=== PATIENT | female | born 1945 | race Caucasian/White ===

== ENCOUNTER → 2016-07-18 | Outpatient (CLI) | payer MEDICARE, BC ==
[~2016-07-18] MED LIST: BUDESONIDE1 POW; CHLOR-TRIMETON; NOLVADEX20 MG PO; RANITIDINE 7575 MG PO; TOPROL XL25 MG PO
== END ==
LOC: MC.RAD 11:40
DX: Z12.31 Encounter for screening mammogram for malignant neoplasm of breast (principal)

== ENCOUNTER → 2017-07-19 | Outpatient (CLI) | payer MEDICARE, BC | LOC: MC.RAD 13:19 | DX: Z12.31 Encounter for screening mammogram for malignant neoplasm of breast (principal) ==

== ENCOUNTER 2018-07-10 08:01 | Day surgery (SDC) | payer MEDICARE, BC ==
[~2018-07-10] VITALS: Ht 175.3 cm; Wt 76.6 kg
[2018-07-10 08:41] VITALS: BP 137/72; PULSE 96; TEMP 97.5
[2018-07-10] MEDS ORDERED: ZANTAC 150MG T150 MG PO (08:52)
[2018-07-10] MEDS ORDERED: SINGULAIR 110 MG/TAB PO (08:53)
[2018-07-10] MEDS ORDERED: LOPRESSOR 225 MG/TAB PO (08:53)
[2018-07-10] MEDS ORDERED: BIAXIN 500MG T500 MG PO (08:54)
[2018-07-10] MEDS ORDERED: VITAMIN B12 1541 TAB PO (08:56)
[2018-07-10] MEDS ORDERED: PULMICORT180 MCG/Ac IH (08:56)
[2018-07-10] MEDS ORDERED: CALCIUM WITH D31 CTB (08:57)
[2018-07-10] MEDS ORDERED: PREDNISONE20 MG PO (09:01)
[2018-07-10] MEDS ORDERED: VENTOLIN0.09 MG IH (09:01)
[2018-07-10] MEDS ORDERED: PROMETHAZINE PO (09:06)
[2018-07-10] MEDS ORDERED: CODEINE PO (09:06)
[2018-07-10] MEDS ORDERED: CHLORTRIMETON PO (09:08)
[2018-07-10] MEDS ORDERED: CHLOR-TABS4 MG PO (09:11)
[2018-07-10] MEDS ORDERED: PROMETHAZINE H118 ML PO (09:12)
--- NOTE | 2018-07-10 09:13 | NUR ---
PATIENT BECAME NAUSEATED AND HAD EMESIS AFTER STARTING IV - RECEIVED ZOFRAN 4MG IV DR PEARCE INTO TALK WITH PATIENT.
[2018-07-10 09:45] VITALS: BP 116/70; PULSE 73; TEMP 97.5
--- NOTE | 2018-07-10 09:45 | NUR ---
TO RM 5 PER CART FROM ENDOSCOPY. AMBULATED WITH 2 ASSIST TO RECLINER. ELEVATED LEGS. PATIENT RESTING QUIETLY. DR PEARCE TALKING WITH PATIENT AND . AT BEDSIDE.
[2018-07-10 10:00] VITALS: BP 100/59; PULSE 75
--- NOTE | 2018-07-10 10:00 | NUR ---
MORE AWAKE AND TAKING SIPS OF WATER. PATIENTS LEFT TO GET SOMETHING TO EAT.
[2018-07-10 10:15] VITALS: BP 111/62; PULSE 74
--- NOTE | 2018-07-10 10:23 | NUR ---
MORE AWAKE AND RECEIVED CRACKERS. DENIES N/V DENIES PAIN OR DISCOMFORT
--- NOTE | 2018-07-10 10:40 | NUR ---
RECEIVED 2ND PACKAGE OF CRACKERS DENIES N/V RECEIVED DISCHARGE INSTRUCTIONS WITH AT BEDSIDE. DISCONTINUED IV AND INT-CATHETER INTACT
--- NOTE | 2018-07-10 10:50 | NUR ---
UP AMBULATED TO BATHROOM AND TOLERATED WELL
--- NOTE | 2018-07-10 10:58 | NUR ---
DISCHARGED PER WC BY NURSING STAFF TO PRIVATE CAR IN CARE OF Cholo MARROQUIN
== END 2018-07-10 10:59 | disposition home or self-care (01) ==
LOC: SDCO 08:01
DX: Z12.11 Encounter for screening for malignant neoplasm of colon (principal); K63.5 Polyp of colon; K64.4 Residual hemorrhoidal skin tags; K57.30 Diverticulosis of large intestine without perforation or abscess without bleeding; J45.909 Unspecified asthma, uncomplicated; K21.9 Gastro-esophageal reflux disease without esophagitis; Z85.3 Personal history of malignant neoplasm of breast; Z85.89 Personal history of malignant neoplasm of other organs and systems; Z79.899 Other long term (current) drug therapy; Z98.51 Tubal ligation status; Z90.89 Acquired absence of other organs; Z88.1 Allergy status to other antibiotic agents
CPT/HCPCS: OP; J2250; J2405; J3010; J7030

== ENCOUNTER → 2018-07-23 | Outpatient (CLI) | payer MEDICARE, BC ==
[~2018-07-23] MED LIST changes: +BIAXIN 500MG T500 MG PO; +CALCIUM WITH D31 CTB; +CHLOR-TABS4 MG PO; +CHLORTRIMETON PO; +CODEINE PO; +LOPRESSOR 225 MG/TAB PO; +PREDNISONE20 MG PO; +PROMETHAZINE H118 ML PO; +PROMETHAZINE PO; +PULMICORT180 MCG/Ac IH; +SINGULAIR 110 MG/TAB PO; +VENTOLIN0.09 MG IH; +VITAMIN B12 1541 TAB PO; +ZANTAC 150MG T150 MG PO
== END ==
LOC: MC.RAD 12:57
DX: N64.4 Mastodynia (principal); Z85.3 Personal history of malignant neoplasm of breast
CPT/HCPCS: G0279

== ENCOUNTER 2019-06-30 21:43 | Emergency (ER) | payer MEDICARE, BC ==
[~2019-06-30] VITALS: Ht 175.3 cm; Wt 76.8 kg
[2019-06-30 21:45] VITALS: TEMP 98.6
[2019-06-30] MEDS ORDERED: PRILOSEC 20MG20 MG PO (22:06)
[2019-06-30] MEDS ORDERED: NORCO 325 MG-51 TAB PO (23:17)
[2019-06-30 23:36] VITALS: BP 131/69; PULSE 84
== END 2019-07-01 00:32 | disposition home or self-care (01) ==
LOC: COL.ER 21:43
DX: S62.101A Fracture of unspecified carpal bone, right wrist, initial encounter for closed fracture (principal); S33.9XXA Sprain of unspecified parts of lumbar spine and pelvis, initial encounter; S46.911A Strain of unspecified muscle, fascia and tendon at shoulder and upper arm level, right arm, initial encounter; I10 Essential (primary) hypertension; R40.2412 Glasgow coma scale score 13-15, at arrival to emergency department; Z79.52 Long term (current) use of systemic steroids; W07.XXXA Fall from chair, initial encounter; Y92.009 Unspecified place in unspecified non-institutional (private) residence as the place of occurrence of the external cause

== ENCOUNTER → 2019-09-24 | Outpatient (CLI) | payer MEDICARE, BC ==
[~2019-09-24] MED LIST changes: +NORCO 325 MG-51 TAB PO; +PRILOSEC 20MG20 MG PO
== END ==
LOC: MC.RAD 10:34
DX: Z12.31 Encounter for screening mammogram for malignant neoplasm of breast (principal); K21.9 Gastro-esophageal reflux disease without esophagitis

== ENCOUNTER → 2020-10-07 | Outpatient (CLI) | payer MEDICARE, BC | LOC: MC.RAD 11:45 | DX: Z12.31 Encounter for screening mammogram for malignant neoplasm of breast (principal) ==

== ENCOUNTER → 2021-10-21 | Outpatient (CLI) | payer MEDICARE, BC | LOC: MC.RAD 13:11 | DX: Z12.31 Encounter for screening mammogram for malignant neoplasm of breast (principal); N64.4 Mastodynia; Z85.3 Personal history of malignant neoplasm of breast; Z92.3 Personal history of irradiation ==

== ENCOUNTER → 2022-11-21 | Outpatient (CLI) | payer MEDICARE, BC | LOC: CANSCHCLI → MC.RAD 14:04 | DX: Z12.31 Encounter for screening mammogram for malignant neoplasm of breast (principal) ==

== ENCOUNTER → 2023-11-30 | Outpatient (CLI) | payer MEDICARE, BC | LOC: MC.RAD 13:54 | DX: Z12.31 Encounter for screening mammogram for malignant neoplasm of breast (principal) ==